=== PATIENT | male | born 1990 | race Caucasian/White ===

== ENCOUNTER 2022-03-28 22:25 | Emergency (ER) | payer OTHER ==
[~2022-03-28] VITALS: Ht 177.8 cm; Wt 112.2 kg
--- NOTE | 2022-03-29 00:09 | RAD ---
XR HAND_RIGHT 3 VIEWS 03/28/2022 11:38 PM INDICATION: Right hand pain. Fall COMPARISON: None available. TECHNIQUE: 3 views the right hand are provided. FINDINGS/ IMPRESSION: There is no acute fracture or dislocation. Joint spaces are maintained. Bone mineralization is within normal limits. Regional soft tissues are within normal limits. There is no soft tissue gas or osseou s erosion. No radiopaque foreign body. Electronically signed by: Bernadette Cota MD (03/29/2022 12:07 AM) [facility]
--- NOTE | 2022-03-29 01:58 | PHYS DOC ---
General Adult EDM: Chief Complaint: HAND PROBLEM HPI: HPI: ".. I tripped at work... and fell.. I noticed later my Rt. 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 Pt. complaints Rt. hand edema and ecchymosis after a trip and fall. Patient distally her neurovascular is equal to left hand. Patient is right-hand dominant. Does have some limitations in making fist because of swelling in hand. Patient normally healthy. Up-to-date with vaccinations. No recent travel. Follows with Dr.Joshua Gannon. Review of Systems: Review of Systems: Constitutional: Denies fever or chills Eyes: Denies change in visual acuity HENT: Denies nasal congestion or sore throat Respiratory: Denies cough or shortness of breath Cardiovascular: Denies chest pain or edema GI: Denies abdominal pain, nausea, vomiting, bloody stools or diarrhea : Denies dysuria Musculoskeletal: Patient complaining of right hand edema and ecchymosis Integument: Denies rash Neurologic: Denies headache, focal weakness or sensory changes Endocrine: Denies polyuria or polydipsia Lymphatic: Denies swollen glands Psychiatric: Denies depression or anxiety Family History: Family History: Noncontributory to presentation Current Medications: Current Meds: See nursing for home meds Allergies: Allergies: No known drug allergies Physical Exam: PE: Constitutional: Well developed, well nourished, no acute distress, non-toxic appearance. [] HENT: Normocephalic, atraumatic, bilateral external ears normal, oropharynx moist, no oral exudates, nose normal. [] Eyes: PERRLA, EOMI, conjunctiva normal, no discharge. [] Neck: Normal range of motion, no tenderness, supple, no stridor. [] Cardiovascular:Heart rate regular rhythm, no murmur [] Lungs & Thorax: Bilateral breath sounds clear to auscultation [] Abdomen: Bowel sounds normal, soft, no tenderness, no masses, no pulsatile masses. [] Skin: Warm, dry, no erythema, no rash. [] Back: No tenderness, no CVA tenderness. [] Extremities: No tenderness, no cyanosis, no clubbing, ROM intact, no edema. Except findings in right hand Neurologic: Alert and oriented X 3, normal motor function, normal sensory function, no focal deficits noted. [] Psychologic: Affect normal, judgement normal, mood normal. [] EKG: EKG: [] Radiology/Procedures: Radiology/Procedures: [][address] [id number] IMAGING REPORT Signed PATIENT: LALO OSWALD ACCOUNT: [id number] : 1990 LOCATION: ER AGE: 31 SEX: M EXAM STATUS: REG ER ORD. PHYSICIAN: CORNEL LYONS MD REASON: right hand pain r/t fall PROCEDURE: HAND RIGHT 3V XR HAND_RIGHT 3 VIEWS 03/28/2022 11:38 PM INDICATION: Right hand pain. Fall COMPARISON: None available. TECHNIQUE: 3 views the right hand are provided. FINDINGS/ IMPRESSION: There is no acute fracture or dislocation. Joint spaces are maintained. Bone mineralization is within normal limits. Regional soft tissues are within normal limits. There is no soft tissue gas or osseous erosion. No radiopaque foreign body. Electronically signed by: Rosio Thomason MD (03/29/2022 12:07 AM) [facility] DICTATED AND SIGNED BY: ROSIO THOMASON MD DATE: 03/29/22 0006 CC: CORNEL LYONS MD; TRISTA GANNON DO ~ Heart Score: C/O Chest Pain: N/A Risk Factors: Risk Factors: DM, Current or recent (<one month) smoker, HTN, HLP, family history of CAD, obesity. Risk Scores: Score 0 - 3: 2.5% MACE over next 6 weeks - Discharge Home Score 4 - 6: 20.3% MACE over next 6 weeks - Admit for Clinical Observation Score 7 - 10: 72.7% MACE over next 6 weeks - Early Invasive Strategies Course & Med Decision Making: Course & Med Decision Making Pertinent Labs and Imaging studies reviewed. (See chart for details) Patient take Tylenol and ibuprofen are safe for discomfort. Follow-up. Zohra. Consider gage-ray in 2 weeks if still having discomfort. Ice packs as needed. Elevate. Return if any concerns. Impression: 1. Right hand contusion and hematoma [] Dragon Disclaimer: Jennifer Disclaimer: This electronic medical record was generated, in whole or in part, using a voice recognition dictation system. Departure Departure: Referrals: TRISTA GANNON DO (PCP) Jennifer Disclaimer This chart was dictated in whole or in part using Voice Recognition software in a busy, high-work load, and often noisy Emergency Department environment. It may contain unintended and wholly unrecognized errors or omissions. CORNEL LYONS MD March 29, 2022 01:58
[2022-03-29 02:11] VITALS: BP 134/76
== END 2022-03-29 02:17 | disposition home or self-care (01) ==
LOC: ER 22:25
DX: S60.221A Contusion of right hand, initial encounter (principal); W01.0XXA Fall on same level from slipping, tripping and stumbling without subsequent striking against object, initial encounter; Y93.89 Activity, other specified; Y92.89 Other specified places as the place of occurrence of the external cause; Y99.8 Other external cause status
CPT/HCPCS: 73130; 99283